=== PATIENT | female | born 1995 | race Hispanic/Latino ===

== ENCOUNTER 2018-08-20 16:52 | Inpatient (IN) | payer BC, OTHER ==
[2018-08-20] MEDS ORDERED: CARBOPROST TROME 250 MCG/ML IM PRN (16:58)
[2018-08-20] MEDS ORDERED: Ringers Lactate 1,000 ML IV PRN (16:58)
[2018-08-20] MEDS ORDERED: Ringers Lactate 1,000 ML IV SCH (17:00)
[2018-08-20] MEDS ORDERED: BETAMET ACET/BETAMET NA PH 6 MG/ML VIAL IM ONE (17:05)
[2018-08-20] MEDS ORDERED: CEFAZOLIN/SWI 2gm 2 GM/20 ML SYR IVP SCH (17:15)
--- OUTSIDE RECORDS SUMMARY | 2018-08-20 17:22 | XMS REPORT ---
:1995 Author Organization eClinicalWorks Care Team Providers Name Role Phone Silver Campos Provider Role Unavailable Allergies No Known Allergies Problems Problem Type Condition Code Onset Dates Condition Status Problem Amenorrhea N91.2 Active Problem Encounter for supervision of Z34.91 Active low-risk in first trimester Problem Unspecified abdominal pain R10.9 Active Problem Impaired glucose in , O99.810 Active antepartum Problem Other specified related O26.899 Active conditions, unspecified trimester Problem Obesity affecting in O99.211 Active first trimester Problem Encounter to determine O36.80X0 Active viability of , single or unspecified fetus Problem Supervision of high risk O09.92 Active in second trimester Problem Screening for genetic disease Z13.71 Active carrier status Medications No Known Medications Results No Known Results Summary Purpose eClinicalWorks Submission
--- OUTSIDE RECORDS SUMMARY | 2018-08-20 17:22 | XMS REPORT ---
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 , second trimester Problem Other specified related O26.899 Active conditions, unspecified trimester Problem Calculus of gallbladder without K80.20 Active cholecystitis without obstruction Problem Supervision of high risk O09.92 Active in second trimester Problem Screening for genetic disease Z13.71 Active carrier status Problem Unspecified abdominal pain R10.9 Active Problem Impaired glucose in , O99.810 Active antepartum Assessment 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
--- OUTSIDE RECORDS SUMMARY | 2018-08-20 17:22 | XMS REPORT ---
:1995 Author Organization eClinicalWorks Care Team Providers Name Role Phone Silver Campos Provider Role Unavailable Allergies No Known Allergies Problems Problem Type Condition Code Onset Dates Condition Status Problem Amenorrhea N91.2 Active Problem Encounter for supervision of Z34.91 Active low-risk in first trimester Assessment Other specified related O26.899 Active conditions, unspecified trimester Assessment Unspecified abdominal pain R10.9 Active Problem Unspecified abdominal pain R10.9 Active Problem [...] Medications Results No Known Results Summary Purpose [employer] Submission
--- OUTSIDE RECORDS SUMMARY | 2018-08-20 17:22 | XMS REPORT ---
:1995 Author Organization eClinicalWorks Care Team Providers Name Role Phone Andres Silver Provider Role Unavailable Allergies No Known Allergies Problems Problem Type Condition Code Onset Dates Condition Status Assessment Encounter for supervision of Z34.91 Active low-risk in first trimester Assessment Obesity affecting in O99.211 Active first trimester Assessment Screening for genetic disease Z13.71 Active carrier status Assessment Supervision of high risk O09.92 Active in second trimester Problem Supervision of high risk O09.92 Active in second trimester Problem Screening for genetic disease Z13.71 Active carrier status Problem Impaired glucose in , O99.810 Active antepartum Problem Encounter for supervision of Z34.91 Active low-risk in first trimester Problem Amenorrhea N91.2 Active Problem Obesity affecting in O99.211 Active first trimester Problem Encounter to determine O36.80X0 Active viability of , single or unspecified fetus Medications Medication Code Code Instructions Start End Status Dosage System Date Date + DHA [facility] [id number] 27-1 & 250 MG Active not Orally defined Results Name Result Date Reference Range Unit Abnormality Flag GLUCOSE, GESTATIONAL SCREEN (50G)-130 CUTOFF Summary Purpose eClinicalWorks Submission
--- OUTSIDE RECORDS SUMMARY | 2018-08-20 17:22 | XMS REPORT ---
:1995 Author Organization eClinicalWorks Care Team Providers Name Role Phone Silver Campos Provider Role Unavailable Allergies No Known Allergies Problems Problem Type Condition Code Onset Dates Condition Status Assessment Impaired glucose in , O99.810 Active antepartum Problem Supervision of high risk O09.92 Active [...] of , single or unspecified fetus Medications No Known Medications Results No Known Results Summary Purpose eClinicalWorks Submission
--- OUTSIDE RECORDS SUMMARY | 2018-08-20 17:22 | XMS REPORT ---
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 Active in , second trimester Problem Other specified related O26.899 Active conditions, unspecified trimester Problem Calculus of gallbladder without K80.20 Active cholecystitis without obstruction Problem Impaired glucose in , O99.810 Active antepartum Problem Supervision of high risk O09.92 Active in second trimester Problem Unspecified abdominal pain R10.9 Active Problem Obesity affecting in O99.212 Active second trimester Assessment Supervision of high risk O09.92 Active in second trimester Problem Amenorrhea N91.2 Active Assessment Impaired glucose in , O99.810 Active antepartum Problem Encounter for supervision of Z34.91 Active low-risk in first trimester Medications Medication Code Code Instructions Start End Status Dosage System Date Date + [facility] [id number] 27-1 & 250 MG Active not Orally defined Results No Known Results Summary Purpose eClinicalWorks Submission
--- OUTSIDE RECORDS SUMMARY | 2018-08-20 17:22 | XMS REPORT ---
:1995 Author Organization eClinicalWorks Care Team Providers Name Role Phone Silver Campos Provider Role Unavailable Allergies, Adverse Reactions, Alerts Substance Reaction Event Type N.K.D.A. Info Not Available Non Drug Allergy Problems Problem Type Condition Code Onset Dates Condition Status Assessment Screening for genetic disease Z13.71 Active carrier status Assessment Encounter for supervision of Z34.91 Active low-risk in first trimester Assessment Supervision of high risk O09.92 Active in second trimester Problem Screening for genetic disease Z13.71 Active carrier status Problem Obesity affecting in O99.211 Active first trimester Problem Supervision of high risk O09.92 Active in second trimester Problem Amenorrhea N91.2 Active Assessment Obesity affecting in O99.211 Active first trimester Problem Encounter to determine O36.80X0 Active viability of , single or unspecified fetus Problem Encounter for supervision of Z34.91 Active low-risk in first trimester Medications Medication Code Code Instructions Start End Status Dosage System Date Date + [facility] [place] [id number] 27-1 & 250 MG Active not Orally defined Results No Known Results Summary Purpose eClinicalWorks Submission
--- OUTSIDE RECORDS SUMMARY | 2018-08-20 17:22 | XMS REPORT ---
[...] affecting in O99.211 Active first trimester Problem Amenorrhea N91.2 Active Assessment Encounter for supervision of Z34.91 Active low-risk in first trimester Problem Encounter to determine O36.80X0 Active viability of , single or unspecified fetus Assessment Obesity affecting in O99.211 Active first trimester Medications Medication Code Code Instructions Start End Status Dosage System Date Date + [facility] [place] [facility] [id number] 27-1 & 250 MG Active not Orally defined Results No Known Results Summary Purpose eClinicalWorks Submission
--- OUTSIDE RECORDS SUMMARY | 2018-08-20 17:22 | XMS REPORT ---
:1995 Author Organization eClinicalWorks Care Team Providers Name Role Phone Silver Campos Provider Role Unavailable Allergies, Adverse Reactions, Alerts Substance Reaction Event Type N.K.D.A. Info Not Available Non Drug Allergy Problems Problem Type Condition Code Onset Dates Condition Status Assessment Obesity affecting in O99.211 Active first trimester Problem Encounter for supervision of Z34.91 Active low-risk in first trimester Problem Obesity affecting in O99.211 Active first trimester Problem Amenorrhea N91.2 Active Assessment Encounter for supervision of Z34.91 Active low-risk in first trimester Assessment Encounter to determine O36.80X0 Active viability of , single or unspecified fetus Problem Encounter to determine O36.80X0 Active viability of , single or unspecified fetus Assessment Amenorrhea N91.2 Active Medications Medication Code Code Instructions Start End Status Dosage System Date Date Doxepin HCl [facility] [place] [id number] 10 MG Orally Inactive not defined Doxycycline [facility] [place] [id number] 100 mg Inactive not defined Results Name Result Date Reference Range Unit Abnormality Flag HIV VARICELLA ZOSTER AB., IgG RPR ----RPR neg 20180220 Hepatitis BsAg Hemoglobin A1c ----Hemoglobin A1c 5.6% 20180213 Rubella IgG TYPE & SCREEN ----Rh POSITIVE 20180213 ----ABO Blood Type O 20180213 CBC w/Diff (CBC) ----HEMATOCRIT 38.3 20180213 ----HEMOGLOBIN 12.3 20180213 ----PLATELETS 291 20180213 ----WBC 12.9 20180213 Summary Purpose [employer] Submission
--- OUTSIDE RECORDS SUMMARY | 2018-08-20 17:22 | XMS REPORT ---
:1995 Author Organization eClinicalWorks Care Team Providers Name Role Phone Gabriela Zachariah Provider Role Unavailable Allergies, Adverse Reactions, Alerts Substance Reaction Event Type N.K.D.A. Info Not Available Non Drug Allergy Problems Problem Type Condition Code Onset Dates Condition Status Problem Encounter for supervision of Z34.91 Active low-risk in first trimester Problem Obesity affecting in O99.211 Active first trimester Problem Encounter to determine O36.80X0 Active viability of , single or unspecified fetus Assessment Calculus of gallbladder without K80.20 Active cholecystitis without obstruction Problem Amenorrhea N91.2 Active Problem 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 [...] Impaired glucose in , O99.810 Active antepartum Medications Medication Code Code Instructions Start End Status Dosage System Date Date + DHA [facility] [id number] 27-1 & 250 MG Active not Orally defined Results No Known Results Summary Purpose [employer] Submission
--- OUTSIDE RECORDS SUMMARY | 2018-08-20 17:23 | XMS REPORT ---
:1995 Author Organization eClinicalWorks Care Team Providers Name Role Phone Silver Campos Provider Role Unavailable Allergies No Known Allergies Problems Problem Type Condition Code Onset Dates Condition Status Problem Supervision of high risk O09.92 Active in second trimester Problem Obesity affecting in O99.212 Active second trimester Problem Impaired glucose in , O99.810 Active antepartum Problem Supervision of high risk O09.93 Active in third trimester Assessment Calculus of gallbladder without K80.20 Active cholecystitis without obstruction Problem Obesity complicating in O99.213 Active third trimester Problem Need for Tdap vaccination Z23 Active Problem Other specified related O26.899 Active conditions, unspecified trimester Problem Unspecified abdominal pain R10.9 Active Problem Calculus of gallbladder without K80.20 Active cholecystitis without obstruction Problem 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 Active in , second trimester Assessment Supervision of high risk O09.93 Active in third trimester Assessment Need for Tdap vaccination Z23 Active Assessment Impaired glucose in , O99.810 Active antepartum Assessment Obesity complicating in O99.213 Active third trimester Problem Encounter for supervision of Z34.91 Active low-risk in first trimester Problem Encounter to determine O36.80X0 Active viability of , single or unspecified fetus Problem Obesity affecting in O99.211 Active first trimester Problem Amenorrhea N91.2 Active Problem Screening for genetic disease Z13.71 Active carrier status Medications Medication Code Code Instructions Start End Status Dosage System Date Date + D[facility] [id number] 27-1 & 250 MG Active not Orally defined Results No Known Results Immunizations Vaccine Administration Date TDAP > 7 Years-Adacel Jul 17, 2018 Summary Purpose eClinicalWorks Submission
--- OUTSIDE RECORDS SUMMARY | 2018-08-20 17:23 | XMS REPORT ---
:1995 Author Organization eClinicalWorks Care Team Providers Name Role Phone Silver Campos Provider Role Unavailable Allergies No Known Allergies Problems Problem Type Condition Code Onset Dates Condition Status Problem Impaired glucose in , O99.810 Active antepartum Problem Unspecified abdominal pain R10.9 Active Problem Obesity affecting in O99.212 Active second trimester Problem Need for Tdap vaccination Z23 Active Problem Supervision of high risk O09.93 Active in third trimester Problem Needs flu shot Z23 Active Problem 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 Active in , second trimester Problem Other specified related O26.899 Active conditions, unspecified trimester Problem Obesity complicating in O99.213 Active third trimester Problem Calculus of gallbladder without K80.20 Active cholecystitis without obstruction Problem Obesity affecting in O99.211 Active first trimester Problem Amenorrhea N91.2 Active Problem Encounter for supervision of Z34.91 Active low-risk in first trimester Problem Supervision of high risk O09.92 Active in second trimester Problem Encounter to determine O36.80X0 Active viability of , single or unspecified fetus Problem Screening for genetic disease Z13.71 Active carrier status Medications No Known Medications Results No Known Results Summary Purpose eClinicalWorks Submission
--- OUTSIDE RECORDS SUMMARY | 2018-08-20 17:23 | XMS REPORT ---
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 Active in , second trimester Assessment Encounter for supervision of Z34.91 Active low-risk in first trimester Assessment Supervision of high risk O09.92 Active in second trimester Assessment Obesity affecting in O99.212 Active second trimester Assessment Screening for genetic disease Z13.71 Active carrier status Problem Encounter for supervision of Z34.91 Active low-risk in first trimester Problem Encounter to determine O36.80X0 Active viability of , single or unspecified fetus Problem Obesity affecting in O99.211 Active first trimester Problem Amenorrhea N91.2 Active Problem Screening for genetic disease Z13.71 Active carrier status Medications Medication Code Code Instructions Start End Status Dosage System Date Date + DHA [facility] [id number] 27-1 & 250 MG Active not Orally defined Results No Known Results Summary Purpose eClinicalWorks Submission
--- OUTSIDE RECORDS SUMMARY | 2018-08-20 17:23 | XMS REPORT ---
:1995 Author Organization eClinicalWorks Care Team Providers Name Role Phone Leighton Camposswinder Provider Role Unavailable Allergies No Known Allergies Problems Problem Type Condition Code Onset Dates Condition Status Problem Impaired glucose in , O99.810 Active antepartum Problem Unspecified abdominal pain R10.9 Active Problem Obesity affecting in O99.212 Active second trimester Problem Need for Tdap vaccination Z23 Active Assessment Calculus of gallbladder without K80.20 Active cholecystitis without obstruction Problem Supervision of high risk O09.93 Active in third trimester Problem Needs flu shot Z23 Active Problem 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 Active in , second trimester Problem Other specified related O26.899 Active conditions, unspecified trimester Problem Obesity complicating in O99.213 Active third trimester Problem Calculus of gallbladder without K80.20 Active cholecystitis without obstruction Assessment Supervision of high risk O09.93 Active in third trimester Assessment Impaired glucose in , O99.810 Active antepartum Assessment Obesity complicating in O99.213 Active third trimester Problem Obesity affecting in O99.211 Active [...] Status Dosage System Date Date + D[facility] [id number] 27-1 & 250 MG Active not Orally defined Results No Known Results Summary Purpose eClinicalWorks Submission
--- OUTSIDE RECORDS SUMMARY | 2018-08-20 17:23 | XMS REPORT ---
:1995 Author Organization eClinicalWorks Care Team Providers Name Role Phone Andres Silver Provider Role Unavailable Allergies No Known Allergies Problems Problem Type Condition Code Onset Dates Condition Status Problem Screening for genetic disease Z13.71 Active carrier status Problem Impaired glucose in , O99.810 Active antepartum Problem Supervision of high risk O09.92 Active in second trimester Problem Obesity complicating in O99.213 Active third trimester Problem Calculus of gallbladder without K80.20 Active cholecystitis without obstruction Problem Supervision of high risk O09.93 Active in third trimester Problem Unspecified abdominal pain R10.9 Active Problem Obesity affecting in O99.212 Active second trimester Problem 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 Active in , second trimester Problem Other specified related O26.899 Active conditions, unspecified trimester Assessment Calculus of gallbladder without K80.20 Active cholecystitis without obstruction Assessment Obesity complicating in O99.213 Active third trimester Problem Encounter for supervision of Z34.91 Active low-risk in first trimester Problem Amenorrhea N91.2 Active Assessment Supervision of high risk O09.93 Active in third trimester Problem Encounter to determine O36.80X0 Active viability of , single or unspecified fetus Problem Obesity affecting in O99.211 Active first trimester Medications Medication Code Code Instructions Start End Status Dosage System Date Date + D[facility] [id number] 27-1 & 250 MG Active not Orally defined Results No Known Results Summary Purpose eClinicalWorks Submission
--- OUTSIDE RECORDS SUMMARY | 2018-08-20 17:23 | XMS REPORT ---
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 Active in , second trimester Problem Other specified related O26.899 Active conditions, unspecified trimester Problem Obesity complicating in O99.213 Active third trimester Problem Calculus of gallbladder without K80.20 Active cholecystitis without obstruction Assessment Needs flu shot Z23 Active Assessment Obesity complicating in O99.213 Active third trimester Assessment Supervision of high risk O09.93 Active in third trimester Problem Obesity affecting in O99.211 [...] Status Dosage System Date Date + DHA [facility] [id number] 27-1 & 250 MG Active not Orally defined Results No Known Results Immunizations Vaccine Administration Date Afluria Aug 02, 2018 Summary Purpose eClinicalWorks Submission
[2018-08-20 17:42] LABS: RPR Titer ND
[2018-08-20 17:43] LABS: Urine Appearance CLOUDY; Urine Bilirubin NEGATIVE (NEG); Urine Blood TRACE (NEG); Urine Color YELLOW; Urine Glucose NEGATIVE (NEG); Urine Protein TRACE (NEG); Urine Specific Gravity 1.025 (1.005-1.030); Urine Urobilinogen 0.2 mg/dL (0.2-1.0); Urine pH 5.5 (5.0-7.0)
[2018-08-20 17:47] LABS: Urine Microscopic Reflex ORDER UMIC
[2018-08-20 17:55] LABS: Absolute Lymphocytes (CBC) 2.3 K/uL (0.7-4.9); Absolute Monocytes 0.6 K/uL (0.1-1.3); Absolute Neutrophil 9.6 K/uL (1.8-8.0); Basophils % 0.1 % (0-1.3); Eosinophils % 0.3 % (0-4.4); Hematocrit 40.8 % (36.0-45.0); Lymphocytes % 18.4 % (15.3-44.8); MCH 27.4 pg (27.0-35.0); MCV 82.5 fL (80-100); MPV 9.5 fL (7.6-11.3); Monocytes % 4.9 % (3.3-12.3); RBC Red Blood Cell Count 4.94 M/uL (3.86-4.86)
[2018-08-20 17:57] LABS: Urine Bacteria 20-50 /HPF (<20); Urine Culture Reflex Order REFLEXED; Urine Mucus 1+ /HPF (NONE SEEN)
[2018-08-20] MEDS ORDERED: CEFAZOLIN 2 GM in NA CHLORIDE 0.9% 100 ML IVPB SCH (18:00)
[2018-08-20] MEDS ORDERED: MAGNESIUM SULF/STERILE WATER 1,000 ML IV SCH (18:00)
[2018-08-20] MEDS ORDERED: NA CIT/CITRIC AC 30 ML ORAL UDC PO ONE (18:06)
[2018-08-20 18:07] VITALS: BMI 40.6
[2018-08-20 18:08] LABS: ALT/SGPT 19 U/L (12-78); AST/SGOT 21 U/L (15-37); Alkaline Phosphatase 134 U/L (45-117); BUN Blood Urea Nitrogen 6 mg/dL (7-18); Bicarbonate 20 mmol/L (21-32); Bilirubin Direct < 0.1 mg/dL (0-0.2); Bilirubin Total 0.4 mg/dL (0.2-1.0); Glucose Level 65 mg/dL (74-106); Potassium 3.6 mmol/L (3.5-5.1); Protein, Total 6.9 g/dL (6.4-8.2); Sodium Level 138 mmol/L (136-145); Uric Acid 4.1 mg/dL (2.6-6.0)
[2018-08-20 18:10] LABS: Protime INR 0.93
[2018-08-20] MEDS ORDERED: FAMOTIDINE 20 MG/2 ML VIAL IV ONE (18:10)
[2018-08-20 18:30] VITALS: O2SAT 99
[2018-08-20] MEDS ORDERED: METOCLOPRAMIDE 10 MG/2mL INJ IV SCH (19:00)
[2018-08-20] MEDS ORDERED: BUPIVACAINE 0.75% (PF) 2 ML SP ONE (19:08)
[2018-08-20] MEDS ORDERED: MORPHINE SULFATE/PF 1 MG/ML (10 ML AMP) ONE (19:08)
[2018-08-20] MEDS ORDERED: LIDOCAINE 2% MPF 5 ML VIAL ONE (19:09)
[2018-08-20] MEDS ORDERED: Phenylephrine HCl 10 MG/ML 1 ML VIAL ONE (19:42)
[2018-08-20] MEDS ORDERED: ONDANSETRON HCL 40 MG/20 ML VIAL ONE (19:44)
[2018-08-20] MEDS ORDERED: OXYTOCIN 10 UNIT/ML ML IV ONE (19:47)
[2018-08-20] MEDS ORDERED: MIDAZOLAM HCL 2 MG/2 ML INJ ONE (20:00)
[2018-08-20] MEDS ORDERED: ACETAMINOPHEN 500 MG TAB PO PRN (20:26)
[2018-08-20] MEDS ORDERED: DOCUSATE NA/SENNA CONC 1 TAB PO PRN (20:26)
[2018-08-20] MEDS ORDERED: BISACODYL 10 MG RECTAL SUPP RECT PRN (20:26)
[2018-08-20] MEDS ORDERED: ONDANSETRON 4 MG (ODT) TAB PO PRN (20:26)
--- NOTE | 2018-08-20 20:27 | P.OP ---
Prosthetic Aides Teacher: Monica Mayers Preoperative diagnosis: 36+ weeks gestation, severe preeclampsia, remote from delivery Postoperative diagnosis: same Primary procedure: Primary low transverse cearean section Secondary procedure: none Other procedure(s): none Anesthesia: Spinal Estimated blood loss: 800cc Specimen: cord blood, placenta Operative Technique: The patient was taken to the operating room where her spinal anesthesia was placed. She was prepped and draped in the usual fashion for the procedure. After adequate spinal level was confirmed, the scalp was utilized to make a transverse incision in the patient's lower abdominal wall. This incision was carried down to the level of the fascia, which was also transversely incised. After adequate hemostasis, the fascia was bluntly and sharply up from the underlying rectus muscle. The rectus muscle was in midline exposing the peritoneum. The peritoneum was carefully grasped and elevated with hemostats. It was entered in an up and down fashion with Metzenbaum scissors. The bladder blade was placed in the lower pole of the incision to protect the bladder. The uterus was palpated and inspected. A thin lower uterine segment was noted. The vertex presentation was confirmed. The scalp was then utilized to make a transverse or Milton incision in the lower uterine wall. Clear fluid was noted upon entering into the amniotic space. At ___, a term viable female was delivered up through the incision. She had spontaneous respirations. She was given bulb suctioning for clear fluid. Her cord was clamped and cut and she was delivered off the field to Dr. Jarvis who was attending. The baby girl was subsequently signed Apgars of __ at one minute and ___ at five minutes. Her weight was found to be ____ pounds and ____ ounces. The placenta was manually extracted from the endometrial cavity. A ring clamp and two Allis clamps were placed around the margin of the uterine incision for hemostasis. The uterus was delivered up into the operative field. The endometrial cavity was swiped clean with a moist laparotomy pad. The uterine incision was then closed in a two-layered fashion with 0 Vicryl suture, the first layer interlocking and the second layer imbricating. Two additional stitches of 3-0 Vicryl suture were utilized for hemostasis. The uterine incision was noted to be hemostatic upon closure. The uterus was rotated forward , normal tubes and ovaries were noted on both sides. The uterus was then returned to its normal position of the abdominal cavity. The sponge and instrument count was performed for the first time at this point and found to be correct. The pelvis and anterior uterine space was then irrigated with saline solution. It was suctioned dry. A final check of the uterine incision confirmed hemostasis. The rectus muscle was stabilized across the midline with two simple stitches of 0 Vicryl suture. The subcutaneous tissue was then exposed, and the fascia closed with two running lengths of 0 Vicryl suture, beginning in lateral margins and overlapping the midline. The subcutaneous tissue was then irrigated and inspected. No active bleeding was noted. It was closed with a running length of 3-0 plain catgut suture. The skin was then approximated with surgical steel deepa. The incision was infiltrated with a 0.5% solution of Marcaine local anesthetic. The incision was cleansed and sterilely dressed. The patient was transferred to the recovery room in stable condition. The estimated blood loss through the procedure was 450 mL. The sponge and instrument counts were performed two more times during closure and found to be correct each time. Complications: None Drain(s): Urinary catheter Transferred to: Recovery Room Condition: Good
[2018-08-20] MEDS ORDERED: OXYTOCIN/LR 20 UNIT/1,000 ML BAG IV ONE (21:43)
[2018-08-20] MEDS: KETOROLAC 30 MG/ML INJ IV PRN (23:00)
--- NOTE | 2018-08-21 06:07 | HP ---
Date of Admission: 08/20/2018 History Of Present Illness: Sheron is a 23-year-old, 1, para 0, at 36 weeks and 2 days ges tation, who presented to Labor and Delivery for delivery due to severe preeclampsia and oligohydramni os. The patient was seen at the [facility] office earlier today and was found to have a moderately reduced amniotic fluid index at 6.1. The week prior, it was 10; and prior to that, it was 16. Therefore, it has been decreasing week by week. She also was having elevated blood pressures 163/92, 2+ bilateral edema, and has elevated umbilical artery Dopplers. Therefore, the decision was made to induce the p atient for delivery. On examination in the office, the patient's cervical examination, the cervix wa s closed, thick, -3 station. Therefore, decision was made for a section to be performed sin ce delivery was necessary urgently. The patient has obtained care with fl beginning at 11 w eeks' gestation. She has been compliant with all visits. She had an elevated 1-hour glucos e screen. A 3-hour glucose screen was done, which was negative. She is also positive SMA carrier. Noninvasive testing was low-risk female . Past Medical History: Includes obesity, SMA carrier. Past Surgical History: Includes tonsillectomy. Family History: Significant for breast cancer. Social History: No tobacco, alcohol, or drug use. She is and is currently a student. Physical Examination: Vital Signs: On admission, blood pressure 162/92, pulse was 98, respirations 18, temperature 98.6, a nd O2 saturation is 100%. General: The patient is in mild distress and anxious. Head and Neck: Normocephalic, atraumatic. Neck is supple. Respiratory: Symmetric, nonlabored breathing. Heart: Regular rate and rhythm. Abdomen: Gravid and obese. Extremities: Bilateral lower extremities; +2 pitting edema bilaterally. Vaginal Examination: Normal external female genitalia. Cervix is closed, long, -3 station. Baby is in vertex presentation. heart rate monitoring category 2. heart rate tracing baseline 140. Erin irregular contractions seen. Laboratory Data: White blood cell count 12.6, hemoglobin 13.5, hematocrit 40.8, and platelet count 2 22. Uric acid is 4.1. Trace protein in the urine. She is Rh positive. Assessment And Plan: Sheron is a 23-year-old, 1, para 0, at 36 weeks and 2 days' gestation with severe preeclampsia and oligohydramnios. care complicated by her being SMA carrier, e levated 1-hour glucose screen, and obesity. Due to severe preeclampsia, remote from delivery, the pa tient is going to be admitted to have a primary section performed. Ancef 2 g will be given prior to incision. Routine postoperative care. However, will need magnesium sulfate. It has alread y been started. We will continue at 2 g/hour for 12 hours. We will continue monitoring urinary outp ut, blood pressure, and any other signs for preeclampsia. If all have resolved, we will discontinue magnesium sulfate. JUAN FRANCISCO Voice ID: [id number]
[2018-08-21 06:47] LABS: Absolute Lymphocytes (CBC) 1.5 K/uL (0.7-4.9); Absolute Monocytes 0.6 K/uL (0.1-1.3); Absolute Neutrophil 18.5 K/uL (1.8-8.0); Basophils % 0.1 % (0-1.3); Lymphocytes % 7.1 % (15.3-44.8); MCH 27.2 pg (27.0-35.0); MCV 82.4 fL (80-100); MPV 9.4 fL (7.6-11.3); Monocytes % 2.9 % (3.3-12.3); RBC Red Blood Cell Count 4.13 M/uL (3.86-4.86)
[2018-08-21 09:56] LABS: Blood Morphology Comment NOT SEEN (NOT SEEN); Platelet Estimate ADEQ; Urine White Blood Cell Casts OK
[2018-08-21] MEDS: KETOROLAC 30 MG/ML INJ IV PRN (10:11)
[2018-08-21] MEDS: Oxycodone HCl/Acetaminophen 1 TAB TAB PO PRN ×2 (16:47→21:10)
[2018-08-21 21:25] LABS: RPR (Rapid Plasma Reagin) NON-REACT (NON-REACT)
--- NOTE | 2018-08-21 23:42 | P.PN ---
Date of Service: 08/21/18
[2018-08-22] MEDS: Oxycodone HCl/Acetaminophen 1 TAB TAB PO PRN ×2 (04:50→09:50)
[2018-08-22] MEDS: IBUPROFEN 400 MG TAB PO PRN ×2 (08:05→14:15)
[2018-08-22 13:13] VITALS: TEMP 98.6
[2018-08-22 16:07] VITALS: BP 134/68
[2018-08-23 17:43] LABS: HBsAG Nonreactive (Nonreactive)
== END 2018-08-22 16:50 | disposition home or self-care (01) | DRG 787 ==
LOC: 2ND-WC 17:19
PROVIDERS: ADMIT Student in an Organized Health Care Education/Training Program; ATTEND Student in an Organized Health Care Education/Training Program
PROC: 10D00Z1 Extraction of Products of Conception, Low, Open Approach (ICD-10-PCS; principal; 2018-08-20 19:30)
DX: O14.14 Severe pre-eclampsia complicating childbirth (principal); O41.03X0 Oligohydramnios, third trimester, not applicable or unspecified; Z3A.36 36 weeks gestation of pregnancy; Z37.0 Single live birth; Z67.90 Unspecified blood type, Rh positive; O99.214 Obesity complicating childbirth; E66.9 Obesity, unspecified; Z68.30 Body mass index [BMI] 30.0-30.9, adult; Z14.8 Genetic carrier of other disease
CPT/HCPCS: 36415; 80048; 80076; 81003; 81015; 83735; 84550; 85025; 85610; 85730; 86592; 86850; 86900; 86901; 87086; 87088; 87340; 88307; J0690; J2250; J2370; J2405; J2590; J2765; J3475